=== PATIENT | female | born 1990 | race Caucasian/White ===

== ENCOUNTER → 2023-01-15 | Outpatient (REF) | LOC: M EMP 09:05 | PROVIDERS: ATTEND Family Medicine | DX: Z11.52 Encounter for screening for COVID-19 (principal) ==

== ENCOUNTER → 2023-01-19 | Outpatient (REF) | LOC: M EMP 08:47 | PROVIDERS: ATTEND Family Medicine | DX: Z20.822 Contact with and (suspected) exposure to COVID-19 (principal) ==

== ENCOUNTER 2023-03-04 20:12 | Emergency (ER) | payer OTHER ==
[~2023-03-04] VITALS: Ht 165.1 cm; Wt 76.2 kg
[2023-03-04 20:13] VITALS: BP 145/80
[2023-03-04] MEDS ORDERED: SUBO12MI SL (20:27)
[2023-03-04] MEDS ORDERED: NEOSPORIN OINT 0.9 GM PKT TOP ONE (21:50)
== END 2023-03-04 22:01 | disposition home or self-care (01) ==
LOC: M ED 20:12
DX: S67.190A Crushing injury of right index finger, initial encounter (principal); S62.630A Displaced fracture of distal phalanx of right index finger, initial encounter for closed fracture; W23.0XXA Caught, crushed, jammed, or pinched between moving objects, initial encounter; Y92.481 Parking lot as the place of occurrence of the external cause; Y93.89 Activity, other specified; Y99.8 Other external cause status